=== PATIENT | male | born 1995 | race American Indian/Alaskan Native ===

== ENCOUNTER 2017-05-29 11:27 | Emergency (ER) | payer OTHER ==
[2017-05-29 11:37] VITALS: BP 118/71
[2017-05-29] MEDS ORDERED: MOTRIN PO ONE (14:17)
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
== END 2017-05-29 16:45 | disposition home or self-care (01) ==
LOC: ED 11:27
DX: H00.011 Hordeolum externum right upper eyelid (principal); H00.031 Abscess of right upper eyelid; H57.11 Ocular pain, right eye; F12.10 Cannabis abuse, uncomplicated; F17.200 Nicotine dependence, unspecified, uncomplicated
CPT/HCPCS: 99282